=== PATIENT | male | born 1965 | race Caucasian/White ===

== ENCOUNTER 2019-05-14 09:11 | Emergency (ER) | payer OTHER ==
[~2019-05-14] VITALS: Ht 170.2 cm; Wt 74.8 kg
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
[2019-05-14] MEDS ORDERED: LORAZEPAM INJ 2 MG/ML VIAL ONE (09:19)
--- NOTE | 2019-05-14 09:20 | NUR ---
pt on 4 point restraint as ordered.
--- NOTE | 2019-05-14 09:20 | NUR ---
SEEN AND EXAMINED BY .
--- NOTE | 2019-05-14 09:22 | NUR ---
ATIVAN 2MG IM TO L THIGH GIVEN PER ERMD VERBAL ORDER.
[2019-05-14] MEDS ORDERED: diphenhydrAMINE HCL 50 MG/ML VIAL IM ONE (09:30)
[2019-05-14] MEDS ORDERED: LORAZEPAM INJ 2 MG/ML VIAL IM ONE (09:30)
[2019-05-14] MEDS ORDERED: HALOPERIDOL LACTATE INJ 5 MG/ML VIAL IM ONE (09:30)
[2019-05-14] MEDS ORDERED: diphenhydrAMINE HCL 50 MG/ML VIAL ONE (09:31)
[2019-05-14] MEDS ORDERED: HALOPERIDOL LACTATE INJ 5 MG/ML VIAL ONE (09:31)
--- NOTE | 2019-05-14 09:35 | NUR ---
URINE SPECIMEN COLLECTED AND SENT TO LAB.
--- NOTE | 2019-05-14 09:40 | NUR ---
IV LINE ESTABLISHED, BLOOD DRAWNED AND SENT TO LAB.
[2019-05-14 09:54] LABS: BASOPHILS % (AUTO) 0.5 % (0.0-2.0); EOSINOPHILS % (AUTO) 0.8 % (0.0-6.0); HEMATOCRIT 38 % (39-51); HEMOGLOBIN 12.9 g/dL (13.5-17.5); LYMPHOCYTES # (AUTO) 1.1 /CMM (0.8-4.8); LYMPHOCYTES % (AUTO) 14.2 % (20.0-44.0); MEAN CORPUSCULAR HGB CONC 34 g/dl (31.0-36.0); MEAN CORPUSCULAR VOLUME 88 fL (80-96); MONOCYTES # (AUTO) 0.9 /CMM (0.1-1.30); MONOCYTES % (AUTO) 11.5 % (2.0-12.0); NEUTROPHILS # (AUTO) 5.8 /CMM (1.8-8.9); PLATELET COUNT (AUTO) 256 /CMM (150-450); RED BLOOD CELL COUNT(AUTO) 4.33 MIL/uL (4.5-6.0)
[2019-05-14 10:00] LABS: APPEARANCE,URINE Clear (CLEAR); BILIRUBIN,URINE SMALL (NEGATIVE); BLOOD, URINE Trace-intact Ery/uL (NEGATIVE); COLOR,URINE Yellow (YELLOW); KETONES,URINE Trace (NEGATIVE); LEUKOCYTE ESTERASE ,URINE Negative (NEGATIVE); NITRITE, URINE Negative (NEGATIVE); PH,URINE 5.5 (5.0-8.0); PROTEIN,URINE 30 mg/dl (NEGATIVE); UGLUCOSE Negative (NEGATIVE)
[2019-05-14 10:00] LABS: CALCIUM, SERUM 9.6 mg/dL (8.5-10.1); CARBON DIOXIDE 24 mmol/L (21-32); CHLORIDE 104 mmol/L (98-107); CREATININE 1.2 mg/dL (0.6-1.3); GLUCOSE 108 mg/dL (74-106); POTASSIUM 2.9 mmol/L (3.5-5.1); SODIUM SERUM 139 mmol/L (136-145); UREA NITROGEN, BLOOD 25 mg/dL (7-18)
[2019-05-14 10:06] LABS: ALANINE AMINOTRANSFERASE 18 U/L (12-78); ALKALINE PHOSPHATASE 117 U/L (46-116); ASPARTATE AMINOTRANSFERASE 24 U/L (15-37); BILIRUBIN,DIRECT 0.3 mg/dL (0.0-0.2); TOTAL PROTEIN, SERUM 7.5 g/dL (6.4-8.2)
[2019-05-14 10:07] LABS: ACETAMINOPHEN 0 ug/ml (10-30); ALCOHOL, BLOOD < 3 mg/dL (0-0); SALICYLATE < 2.8 mg/dL (2.8-20.0)
[2019-05-14 10:09] LABS: BACTERIA,URINE Rare /HPF (None Seen); SQUAMOUS EPITHELIAL CELL,UR Rare /HPF (None Seen); WBC,URINE 0-2 /HPF (0-3)
--- NOTE | 2019-05-14 11:46 | NUR ---
PT ASLEEP ON BED EASILY AROUSABLE, NOT IN RESPIRATORY DISTRESS, V/S STABLE, WILL CONTINUE TO MONITOR.
--- NOTE | 2019-05-14 19:16 | NUR ---
REPORT GIVEN TO LYDIA CUNNINGHAM FOR [facility].
--- NOTE | 2019-05-14 22:10 | NUR ---
PT CONTINUES TO SLEEP IN BED, SUPINE W/ HOB ELEVATED, RESP EVEN & UNLABORED, NAD NOTED. ON CONTINUOUS MONITORING. BED LOW TO GROUND W/ SIDE RAILS UP FOR SAFETY. PT CONTINUES TO BE IN [employer] CUSTODY W/ [employer] AT BEDSIDE.
--- NOTE | 2019-05-14 23:57 | NUR ---
PT ABLE TO REPOSITION SELF IN BED, ASLEEP ON RT SIDE W/ RESP EVEN & UNLABORED, NAD NOTED. ON CONTINUOUS MONITORING. [employer] REMAIN AT BEDSIDE.
--- NOTE | 2019-05-15 01:21 | NUR ---
NO CHANGE IN PT STATUS, CONTINUES TO SLEEP IN BED, REPOSITIONING SELF W/ NAD NOTED. [employer] OFFICERS REMAIN AT BEDSIDE.
--- NOTE | 2019-05-15 02:54 | NUR ---
PT REPOSITIONING SELF IN BED, ASLEEP, W/ RESP EVEN & UNLABORED, ON CONTINUOUS MONITORING. [employer] OFFICERS REMAIN AT BEDSIDE.
--- NOTE | 2019-05-15 05:15 | NUR ---
PT GIVEN CRACKERS & WATER, SITTING UP IN BED EATING & DRINKING W/ NO ASPIRATION OF FOOD NOTED. [employer] OFFICERS REMAIN AT BEDSIDE.
--- NOTE | 2019-05-15 05:29 | NUR ---
Patient AOX4, ambulatory w/ steady gait, resp even & unlabored, denies any pain w/ nad noted. Patient adequately dressed w/ all belongings returned to patient. IV removed. Catheter intact and site benign. Pressure and 4x4 applied to site. No bleeding noted. Patient medically cleared for booking by Dr. Bergman and discharged to [employer] custody in stable condition. Written and verbal after care instructions given. Patient verbalizes understanding of instruction. Patient handcuffed by [employer] and escorted out of ER in [employer] custody.
[2019-05-15 05:32] VITALS: BP 154/72
== END 2019-05-15 05:32 ==
LOC: EDBD 09:13 → ER 09:13
DX: F60.0 Paranoid personality disorder (principal); F15.10 Other stimulant abuse, uncomplicated
CPT/HCPCS: 36415; 51701; 80048; 80076; 80305; 80307; 80329; 81001; 85025; 96372 ×3; 99284; G0480; J1200; J1630; J2060; 81000-TC